=== PATIENT | male | born 1985 | race Two or more races ===

== ENCOUNTER 2021-11-26 12:58 | Emergency (ER) | payer MEDICAID ==
[~2021-11-26] VITALS: Ht 172.7 cm; Wt 78.0 kg
[2021-11-26 12:59] VITALS: BP 115/72
[2021-11-26] MEDS ORDERED: SODIUM CHLORIDE 0.9% 1,000 ML IV ONE (13:15)
[2021-11-26 13:49] LABS: BASOPHILS % 1.1 % (0.0-2.0); EOSINOPHILS % 6.4 % (0.0-5.0); HEMATOCRIT. 36.9 % (42.0-52.0); HEMOGLOBIN. 12.7 g/dL (14.0-18.0); LYMPHOCYTES % 29.1 % (20.0-50.0); MEAN CORPUSCULAR HEMOGLOBIN 31.3 pg (28.0-32.0); MEAN CORPUSCULAR VOLUME 91.3 fL (80.0-94.0); MEAN PLATELET VOLUME 7.4 fl (7.4-10.4); MONOCYTES % 6.3 % (2.0-8.0); NEUTROPHILS % 57.1 % (40.0-76.0); PLATELET 329 x1000/uL (130-400); RED BLOOD CELL COUNT 4.04 mill/uL (4.7-6.1); RED CELL DISTRIBUTION WIDTH 13.8 % (11.6-14.6)
[2021-11-26 14:03] LABS: CHLORIDE 109 mEq/L (98-107)
== END 2021-11-26 14:26 | disposition left against medical advice (07) ==
LOC: ER 13:09
DX: G40.909 Epilepsy, unspecified, not intractable, without status epilepticus (principal)
CPT/HCPCS: 36415; 70450; 80053; 84484; 85025; 99284; J7030